=== PATIENT | male | born 1985 | race Hispanic/Latino ===

== ENCOUNTER 2018-09-13 18:44 | Observation (INO) | payer OTHER ==
[2018-09-13 18:57] VITALS: BMI 36.7
[2018-09-13 20:02] LABS: HEMOGLOBIN 17.7 g/dL (14.0-18.0); MEAN CELL VOLUME 93.4 fl (80.0-105.0); MEAN CORPUSCULAR HEMOGLOBIN 32.4 pg (25.0-35.0); MEAN CORPUSCULAR HGB CONC 34.6 g/dl (31.0-37.0); MEAN PLATELET VOLUME 9.2 fl (7.0-11.0); RBC 5.47 10^6/uL (3.5-6.1); RED CELL DISTRIBUTION WIDTH 12.7 % (11.5-14.5); WHITE BLOOD COUNT 11.7 10^3/uL (4.5-11.0)
--- NOTE | 2018-09-13 20:05 | ED PDOC ---
Arrival/HPI - General Chief Complaint: Syncope Time Seen by Provider: 09/13/18 19:26 Historian: Patient - History of Present Illness Narrative History of Present Illness (Text): 09/13/18 20:02 33 year old male, whose past medical history includes hypertension, presents to the emergency department for evaluation of syncopal episode which occurred earlier this evening. He does not remember what happened, he was playing video games at time, shortly becoming dizzy, stopping, and then passed out according to the mom. Patient reportedly was clenching his teeth at the time. No tongue biting or urinary incontinents. Mother states he was slightly drowsy after but awake. Patient does not recollect the event he denies fevers, chills, headache, dizziness, chest pain, shortness of breath, dyspnea on exertion, cough, abdominal pain, nausea, vomiting, diarrhea, back pain, neck pain, or any other complaint. Time/Duration: Prior to Arrival Symptom Onset: Sudden Activities at Onset: Light Context: Home Past Medical History - Provider Review Nursing Documentation Reviewed: Yes - Cardiac Hx Hypertension: Yes - Psychiatric Hx Substance Use: No - Surgical History Hx Orthopedic Surgery: Yes (R leg) - Anesthesia Hx Anesthesia: Yes Family/Social History - Physician Review Nursing Documentation Reviewed: Yes Family/Social History: No Known Family HX Smoking Status: Never Smoked Hx Alcohol Use: No Hx Substance Use: No Allergies/Home Meds Allergies/Adverse Reactions: Allergies No Known Allergies Allergy (Verified 09/13/18 18:57) Home Medications: Home Meds Medication Instructions Recorded Confirmed Azilsartan Medoxomil [Edarbi] 40 mg PO DAILY 09/13/18 09/13/18 Review of Systems - Physician Review All systems were reviewed & negative as marked: Yes - Review of Systems Constitutional: absent: Fevers Respiratory: absent: SOB, Cough Cardiovascular: Syncope. absent: Chest Pain Gastrointestinal: absent: Abdominal Pain, Nausea, Vomiting, Appetite Changes Genitourinary Male: absent: Dysuria Musculoskeletal: absent: Back Pain, Neck Pain Neurological: absent: Headache, Dizziness Physical Exam Vital Signs Reviewed: Yes Vital Signs Pulse Resp BP Pulse Ox 09/13/18 19:48 83 18 99/45 L 100 Temperature: Afebrile Blood Pressure: Hypotensive Pulse: Regular Respiratory Rate: Normal Appearance: Positive for: Well-Appearing, Non-Toxic, Comfortable Pain Distress: None Mental Status: Positive for: Alert and Oriented X 3 - Systems Exam Head: Present: Atraumatic, Normocephalic Pupils: Present: PERRL Extroacular Muscles: Present: EOMI Conjunctiva: Present: Normal Ears: Present: NORMAL TM Mouth: Present: Moist Mucous Membranes Neck: Present: Normal Range of Motion Respiratory/Chest: Present: Clear to Auscultation, Good Air Exchange. No: Respiratory Distress, Accessory Muscle Use Cardiovascular: Present: Regular Rate and Rhythm, Normal S1, S2. No: Murmurs Abdomen: No: Tenderness, Distention, Peritoneal Signs Back: Present: Normal Inspection Upper Extremity: Present: Normal Inspection. No: Cyanosis, Edema Lower Extremity: Present: Normal Inspection. No: Edema Neurological: Present: GCS=15, CN II-XII Intact, Speech Normal, Motor Func Grossly Intact, Normal Sensory Function Skin: Present: Warm, Dry, Normal Color. No: Rashes Psychiatric: Present: Alert, Oriented x 3, Normal Insight, Normal Concentration Medical Decision Making ED Course and Treatment: 09/13/18 20:02 Impression: 33 year old male who presents to the emergency department s/p syncopal episode. Differential Diagnosis included but are not limited to: seizure vasovagal syncope cardiac arrhythmia Plan: -- Head CT w/o contrast -- EKgG -- Labs -- Chest X-ray -- Reassess and disposition Prior Visits: Notes and results from previous visits were reviewed. Progress Notes: 09/13/18 22:14 CT head reviewed by radiologist, shows: No acute intracranial abnormality 09/13/18 23:23 EKG reviewed by me, shows: Normal sinus rhythm @66bpm No acute changes. 09/13/18 23:[address] Bryant who accepts patient to his service, and requests the medical insurance clerk be called. Spoke with vice president mission integration. Dr Donahue on consult. - Lab Interpretations I have reviewed the lab results: Yes - RAD Interpretation Radiology Orders: 09/13/18 19:50 HEAD W/O CONTRAST [CT] Stat CHEST PORTABLE [RAD] Stat - EKG Interpretation Interpreted by ED Physician: Yes Type: 12 lead EKG - Scribe Statement The provider has reviewed the documentation as recorded by the Christianibanna Bautista Provider Scribe Attestation: All medical record entries made by the Scribe were at my direction and personally dictated by me. I have reviewed the chart and agree that the record accurately reflects my personal performance of the history, physical exam, medical decision making, and the department course for this patient. I have also personally directed, reviewed, and agree with the discharge instructions and disposition. Disposition/Present on Arrival - Present on Arrival Any Indicators Present on Arrival: No History of DVT/PE: No History of Uncontrolled Diabetes: No Urinary Catheter: No History of Decub. Ulcer: No History Surgical Site Infection Following: None - Disposition Have Diagnosis and Disposition been Completed?: Yes Diagnosis: Syncope Disposition: HOSPITALIZED Disposition Time: 23:28 Patient Problems: Current Active Problems Problem Status Onset Syncope Acute Condition: STABLE
[2018-09-13 20:14] LABS: INR 1.03; PROTHROMBIN TIME 11.7 SECONDS (9.4-12.5)
[2018-09-13 20:15] LABS: ALB/GLOB RATIO 1.6 (1.1-1.8); ALBUMIN 4.5 g/dL (3.0-4.8); ALT/SGPT 50 U/L (7-56); AST/SGOT 31 U/L (17-59); BLOOD UREA NITROGEN 15 mg/dL (7-21); CALCIUM 9.5 mg/dL (8.4-10.5); GFR NON-AFRICAN AMERICAN > 60
[2018-09-13 20:25] LABS: TROPONIN I < 0.01 ng/mL
[2018-09-13] MEDS ORDERED: Lactated Ringer's 1,000 ML IV SCH (23:45)
[2018-09-14 00:28] LABS: FREE T4 1.19 ng/dL (0.78-2.19)
[2018-09-14 01:25] LABS: TROPONIN I < 0.01 ng/mL
[2018-09-14 01:32] LABS: FREE T4 1.17 ng/dL (0.78-2.19); T4 8.9 ug/dL (5.5-11.0)
--- NOTE | 2018-09-14 02:18 | CP.PCM.HP ---
History of Present Illness - History of Present Illness History of Present Illness: Christiana Ruiz, PGY-1, Internal Medicine History and Physical for Dr. Bryant 33 year old male with past medical history of hypertension, obstructive sleep apnea, and vitamin D deficiency presents with an episode of syncope vs. seizure. Patient reports that around 18:00 on 09/13, patient stood up after playing videos games and started to feel dizzy. He splashed some water on his face and he passed out. His mother at bedside reports that his brother who was present at the event noticed that the patient became stiff and was clenching his teeth. Patient also reports that he had an episode of urinary incontinence during the event. Patient denied tongue biting or fecal incontinence. After the event, patient felt dizzy. EMS brought the patient in and noted that the patient had low blood pressure. The exact reading cannot be found. At bedside, patient denied any current symptoms including headache, fever, chest pain, shortness of breath, nausea, vomiting, constipation, diarrhea, dysuria, hematuria, numbness/tingling. 12-point ROS was unremarkable except for what was mentioned above. PMH: as stated above PSH: right knee surgery FMHx: MS, DM II, stroke, CHF, NH, Alzhiemer's SHx: smokes 1 PPD for 10 years, denies alcohol use, reports marijuana use for "long time" Allergies: denies PMD: Dr. Bryant Home Rx: Edarbi 40 mg, Vitamin D Present on Admission - Present on Admission Any Indicators Present on Admission: No Review of Systems - Constitutional Constitutional: absent: Anorexia, Chills, Fever - EENT Eyes: absent: Blurred Vision Nose/Mouth/Throat: absent: Nasal Congestion - Cardiovascular Cardiovascular: absent: Chest Pain, Dyspnea, Edema, Leg Edema - Respiratory Respiratory: Snoring. absent: Cough, Dyspnea, Wheezing - Gastrointestinal Gastrointestinal: absent: Abdominal Pain, Constipation, Diarrhea, Nausea, Vomiting - Genitourinary Genitourinary: absent: Dysuria, Hematuria - Musculoskeletal Musculoskeletal: absent: Arthralgias - Neurological Neurological: Dizziness. absent: Numbness, Tingling, Vertigo Past Patient History - Past Social History Smoking Status: Never Smoked - CARDIAC Hx Cardiac Disorders: Yes Hx Hypertension: Yes - PULMONARY Hx Respiratory Disorders: No - NEUROLOGICAL Hx Neurological Disorder: No - HEENT Hx HEENT Problems: No - RENAL Hx Chronic Kidney Disease: No - ENDOCRINE/METABOLIC Hx Endocrine Disorders: No - HEMATOLOGICAL/ONCOLOGICAL Hx Blood Disorders: No - INTEGUMENTARY Hx Dermatological Problems: No - MUSCULOSKELETAL/RHEUMATOLOGICAL Hx Musculoskeletal Disorders: Yes Hx Fractures: Yes (right leg fracture with screws) - GASTROINTESTINAL Hx Gastrointestinal Disorders: No - GENITOURINARY/GYNECOLOGICAL Hx Genitourinary Disorders: No - PSYCHIATRIC Hx Psychophysiologic Disorder: No - SURGICAL HISTORY Hx Surgeries: Yes Hx Orthopedic Surgery: Yes (R leg) - ANESTHESIA Hx Anesthesia: Yes Meds Allergies/Adverse Reactions: Allergies Allergy/AdvReac Type Severity Reaction Status Date / Time No Known Allergies Allergy Verified 09/13/18 18:57 Physical Exam - Constitutional Appears: Well, Non-toxic, No Acute Distress - Head Exam Head Exam: ATRAUMATIC, NORMAL INSPECTION, NORMOCEPHALIC - Eye Exam Eye Exam: EOMI, PERRL Additional comments: horizontal and vertical nystagmus tests were negative. - ENT Exam ENT Exam: Mucous Membranes Moist - Respiratory Exam Respiratory Exam: Clear to Auscultation Bilateral, NORMAL BREATHING PATTERN - Cardiovascular Exam Cardiovascular Exam: REGULAR RHYTHM, RRR - GI/Abdominal Exam GI & Abdominal Exam: Normal Bowel Sounds, Soft. absent: Tenderness - Extremities Exam Extremities exam: Positive for: full ROM, normal inspection - Neurological Exam Neurological exam: Alert, CN II-XII Intact, Normal Gait, Oriented x3 Additional comments: negative Romberg's - Skin Skin Exam: Dry, Intact, Normal Color Results - Vital Signs Recent Vital Signs: Last Vital Signs Temp Pulse 70 09/14/18 01:45 Resp 18 09/14/18 01:45 BP 105/57 L 09/14/18 01:45 Pulse Ox 95 09/14/18 01:45 - Labs Result Diagrams: 09/13/18 19:00 09/13/18 19:00 Labs: Laboratory Results - last 24 hr 09/13/18 09/13/18 09/13/18 19:00 19:00 19:00 WBC 11.7 H RBC 5.47 Hgb 17.7 Hct 51.1 MCV 93.4 MCH 32.4 MCHC 34.6 RDW 12.7 Plt Count 379 MPV 9.2 PT 11.7 INR 1.03 APTT 30.0 Sodium 138 Potassium 4.4 Chloride 101 Carbon Dioxide 30 Anion Gap 11 BUN 15 Creatinine 1.0 Est GFR ( Amer) > 60 Est GFR (Non-Af Amer) > 60 Random Glucose 104 Calcium 9.5 Total Bilirubin 1.4 H AST 31 ALT 50 Alkaline Phosphatase 72 Lactate Dehydrogenase 322 L Total Creatine Kinase 30 L Troponin I < 0.01 Total Protein 7.3 Albumin 4.5 Globulin 2.8 Albumin/Globulin Ratio 1.6 Free T4 Thyroxine (T4) TSH 3rd Generation 09/13/18 09/14/18 09/14/18 19:00 00:45 00:45 WBC RBC Hgb Hct MCV MCH MCHC RDW Plt Count MPV PT INR APTT Sodium Potassium Chloride Carbon Dioxide Anion Gap BUN Creatinine Est GFR ( Amer) Est GFR (Non-Af Amer) Random Glucose Calcium Total Bilirubin AST ALT Alkaline Phosphatase Lactate Dehydrogenase Total Creatine Kinase 33 L Troponin I < 0.01 Total Protein Albumin Globulin Albumin/Globulin Ratio Free T4 1.19 1.17 Thyroxine (T4) 9.0 8.9 TSH 3rd Generation 2.12 1.24 Assessment & Plan - Assessment and Plan (Free Text) Assessment: 33 year old male with past medical history of hypertension, obstructive sleep apnea, and vitamin D deficiency presents with an episode of syncope vs. seizure. Plan: Seizure vs. Syncope -Event possibly due to orthostatic hypotension. Orthostatic vitals ordered and started on lactated ringer at 100 cc/hr -Head CT: shows no acute intracranial findings -Follow up results of Head MRI/MRA -Follow up lipid panel, TSH, T4, UDS, vitamin B12, CPK, magnesium, and phosphorus, ESR, CRP, lyme disease IgG -Vital signs Q4 -Neuro Check Q2 -Seizure precautions -Aspirin 81, atorvastatin 40 mg for possible cardiac cause of syncope -Dr. Donahue, Neurology, consulted for recommendations -Dr. Dueñas, Cardiology, consulted for recommendations. History of hypertension -On admission, blood pressure was 99/45. Last blood pressure was 105/57 -Hold home edarbi History of Obstructive Sleep Apnea -Recommend CPAP Vitamin D Deficiency -Documented history -No results available -Vitamin D level ordered GI prophylaxis: protonix 40 mg daily DVT prophylaxis: SCD, lovenox 40 mg daily Patient plan discussed with Dr. Bryant. - Date & Time Date: 09/14/18 Time: 02:21
[2018-09-14 04:23] LABS: ALT/SGPT 54 U/L (7-56); HDL CHOLESTEROL 33 mg/dL (29-60)
[2018-09-14 04:25] LABS: ALB/GLOB RATIO 1.7 (1.1-1.8); ALBUMIN 4.3 g/dL (3.0-4.8); AST/SGOT 23 U/L (17-59); BILIRUBIN,DIRECT 0.1 mg/dL (0.0-0.4); BLOOD UREA NITROGEN 14 mg/dL (7-21); CALCIUM 9.4 mg/dL (8.4-10.5); GFR NON-AFRICAN AMERICAN > 60
[2018-09-14 04:26] LABS: BASO % 0.4 % (0.0-3.0); EOS % 1.1 % (1.5-5.0); GRAN # 11.36 (1.4-6.5); GRAN % 73.8 % (50.0-68.0); HEMOGLOBIN 16.7 g/dL (14.0-18.0); LYMPH # 2.9 (1.2-3.4); LYMPH % 18.9 % (22.0-35.0); MEAN CELL VOLUME 91.3 fl (80.0-105.0); MEAN CORPUSCULAR HEMOGLOBIN 31.6 pg (25.0-35.0); MEAN CORPUSCULAR HGB CONC 34.6 g/dl (31.0-37.0); MEAN PLATELET VOLUME 8.8 fl (7.0-11.0); MONO # 0.9 (0.1-0.6); MONO % 5.8 % (1.0-6.0); RBC 5.29 10^6/uL (3.5-6.1); RED CELL DISTRIBUTION WIDTH 12.7 % (11.5-14.5); WHITE BLOOD COUNT 15.4 10^3/uL (4.5-11.0)
[2018-09-14 04:27] LABS: BASO # 0.06 K/mm3 (0.0-2.0); EOS # 0.2 (0.0-0.7)
[2018-09-14 04:34] LABS: LDL CHOLESTEROL 101 mg/dL (0-129); TROPONIN I < 0.01 ng/mL
[2018-09-14] MEDS ORDERED: Pantoprazole 40 mg EC Tab PO SCH (06:00)
[2018-09-14 08:46] LABS: TROPONIN I < 0.01 ng/mL
--- NOTE | 2018-09-14 08:57 | CT ---
Date of service: 09/13/2018 PROCEDURE: CT HEAD WITHOUT CONTRAST. HISTORY: syncope COMPARISON: None available. TECHNIQUE: Axial computed tomography images were obtained through the head/brain without intravenous contrast. Radiation dose: Total exam DLP = 1023.77 mGy-cm. This CT exam was performed using one or more of the following dose reduction techniques: Automated exposure control, adjustment of the mA and/or kV according to patient size, and/or use of iterative reconstruction technique. FINDINGS: HEMORRHAGE: No intracranial hemorrhage. BRAIN: No mass effect or edema. No atrophy or chronic microvascular ischemic changes. VENTRICLES: Unremarkable. No hydrocephalus. CALVARIUM: Unremarkable. PARANASAL SINUSES: Unremarkable as visualized. No significant inflammatory changes. MASTOID AIR CELLS: Unremarkable as visualized. No inflammatory changes. OTHER FINDINGS: The report concurs with the preliminary [facility] report IMPRESSION: No acute intracranial findings
[2018-09-14] MEDS ORDERED: Gadodiamide 287 MG/ML VIAL (20ML) IV ONE (09:41)
[2018-09-14] MEDS ORDERED: Enoxaparin 40 mg Syringe SC SCH (10:00)
--- NOTE | 2018-09-14 11:32 | MRI ---
Date of service: 09/14/2018 PROCEDURE: MRI BRAIN WITH AND WITHOUT CONTRAST HISTORY: SYNCOPE/SEIZURE COMPARISON: None available. TECHNIQUE: Multiplanar, multisequence MR images of the brain were obtained with and without intravenous contrast enhancement. 20 cc of Omniscan FINDINGS: HEMORRHAGE: None DWI: No evidence of an acute or early subacute infarction. BRAIN PARENCHYMA: No mass,mass effect or edema. No atrophy or chronic microvascular ischemic changes. ENHANCEMENT: No abnormal intracranial enhancement. VENTRICLES: Unremarkable. No hydrocephalus. CRANIUM: Unremarkable. ORBITS: Grossly unremarkable. PARANASAL SINUSES/MASTOIDS: Clear VASCULAR SYSTEM: Skull base flow voids intact. OTHER FINDINGS: None . IMPRESSION: Unremarkable pre and post contrast enhanced MRI of the brain.
--- NOTE | 2018-09-14 11:33 | MRI ---
Date of service: 09/14/2018 PROCEDURE: Magnetic Resonance Angiography Brain HISTORY: SYNCOPE/SEIZURE COMPARISON: None available. TECHNIQUE: 3D time of flight MR angiography of the intracranial arteries was performed. Rotating maximum intensity projection images were generated. FINDINGS: INTERNAL CAROTID ARTERIES: Unremarkable. The skull base, petrous, cavernous and supraclinoid segments are bilaterally widely patient. ANTERIOR CEREBRAL ARTERIES: Unremarkable. A1 and A2 segments are widely patent. Smaller distal branches unremarkable, as visualized. MIDDLE CEREBRAL ARTERIES: Unremarkable. M1 and M2 segments are widely patent. Perisylvian branches grossly symmetric. POSTERIOR CIRCULATION: Basilar Artery: Unremarkable. Distal Vertebral Arteries: Unremarkable. Posterior Cerebral Arteries: Unremarkable. Posterior Inferior Cerebellar Arteries: Unremarkable. ANEURYSM/ VASCULAR MALFORMATIONS: None. OTHER FINDINGS: None. IMPRESSION: Unremarkable MR angiography of the brain.
--- NOTE | 2018-09-14 11:51 | RAD ---
HISTORY: syncope COMPARISON: None available. TECHNIQUE: Chest, one view. FINDINGS: Examination limited by habitus and hypoinflation. LUNGS: No focal consolidation. Please note that chest x-ray has limited sensitivity for the detection of pulmonary masses. PLEURA: No significant pleural effusion identified. No definite pneumothorax . CARDIOVASCULAR: Heart size appears within normal limits. No significant atherosclerotic calcification present. OSSEOUS STRUCTURES: No acute osseous abnormality identified. VISUALIZED UPPER ABDOMEN: Unremarkable. OTHER FINDINGS: None. IMPRESSION: No focal consolidation.
--- NOTE | 2018-09-14 12:12 | PN ---
DATE: 09/14/2018 LOCATION: The patient is now in room 362. SUBJECTIVE: The patient was yesterday seen in bed 13 in the emergency room. Overnight nurse's notes were reviewed. No syncope was documented. No seizure activity was documented. OBJECTIVE: VITAL SIGNS: From the last 12-24 hours, blood pressure from yesterday 99/45 up to 111/53, 105/57, 131/93, respirations 18, O2 sat 98%. Last blood pressure 147/84. HEAD: Normocephalic, atraumatic. HEENT examination shows pink conjunctivae. Anicteric sclerae. No oropharyngeal lesion. NECK: No neck rigidity. Neck is short and supple. CHEST: Kyphosis. LUNGS: Shows no audible crackle, rales or wheezing. CARDIOVASCULAR: S1, S2, regular rhythm. No audible murmur, gallop or rub. ABDOMEN: Obese, protuberant. Positive bowel sound. GENITALIA: Male. RECTAL: Deferred. EXTREMITIES: Shows no pitting edema, no calf tenderness, no Homans' sign. NEUROLOGIC: The patient is alert, awake, oriented x3. Cranial nerves II-XII intact. Gait examination is independent. VASCULAR: Palpable pulses. PSYCHIATRIC: Negative. DIAGNOSTICS: EKG is within normal limits. MRI, MRA of the brain done, results pending. LABORATORY DATA: From 09/14, WBC 15.4, hemoglobin/hematocrit 16.7, 48.3, platelet 345. Granulocytes; 74% segs. Sodium 140, potassium 4.4, chloride 104, CO2 27, BUN 14, creatinine 0.8, glucose 102, calcium 9.4, phosphorus 4.6, magnesium 2.0. Troponin all 3 sets are negative. Cholesterol 152, LDL 101. IMPRESSION AND PLAN: 1. Syncope. 2. Questionable seizure versus syncope. 3. Urinary incontinence. 4. Facial posturing during syncope and questionable seizure. 5. Hypotension (resolved). 6. Leukocytosis with granulocytosis, etiology undetermined. 7. Borderline hyperlipidemia. 8. Obesity. 9. History of hypertension. 10. Hypovitaminosis D. 11. History of snoring and possible obstructive sleep apnea. 12. Morbid obesity with elevated body mass index. PLAN: At this time, the patient was given IV fluid at the time of admission because of hypotension which will be considered for discontinuation. The patient is awaiting Cardiology, Neurology evaluation and recommendation. The patient's MRI, MRA of the brain will be reviewed when available. Carotid Doppler will be reviewed when available. EEG, echo reports will be reviewed when available. We will await further recommendation by Neurology, Cardiology regarding further recommendation. The patient will have a repeat CBC done in the morning for leukocytosis evaluation. The patient will be continued on GI, DVT prophylaxis. The patient will be continued on seizure precautions, neuro checks. Out of bed to chair. The patient will be continued on Protonix and GI, DVT prophylaxis. The patient will be given aspirin 81 mg daily. The patient will be given statins, Lipitor 40 mg daily. The patient will be given GI prophylaxis. At present, the patient is awaiting results of the diagnostic testing and evaluation by Neurology, Cardiology. All the above will determine the patient's disposition. The patient updated about his condition, diagnosis, test results, and further awaited recommendations from other community resource consultant involved in the care of the patient and other recommendation will also be based on the diagnostic test results which the patient acknowledged and understand. The patient was counseled about cessation of smoking, weight loss, cessation of recreational drug use. The patient was also advised outpatient polysomnography and sleep study for which the patient was advised Pulmonary, ENT evaluation. Dictated and electronically signed, not read. Chirag Bryant MD
[2018-09-14] MEDS ORDERED: Ergocalciferol 50,000 Intl Units Cap PO SCH (12:15)
[2018-09-14 12:53] LABS: FOLATE 3.8 ng/mL
--- NOTE | 2018-09-14 14:36 | US ---
PROCEDURE: Bilateral carotid artery duplex ultrasound HISTORY: Carotid stenosis syncope PHYSICIAN(S): Roger Srinivasan MD. TECHNIQUE: Duplex sonography and color-flow Doppler were used to evaluate the carotid bifurcations and limited segments of the vertebral arteries bilaterally. FINDINGS: There is mild intimal-medial thickening noted at the carotid bifurcations bilaterally. The peak systolic velocity in the proximal right internal carotid artery is 155 cm/sec. However, the ic/cc ratio is normal. This corresponds to a 0-19 percent proximal right ICA stenosis. Normal systolic velocities are noted in the proximal right external carotid artery. There is antegrade flow in the right vertebral artery. The peak systolic velocity in the proximal left internal carotid artery is 136 cm/sec. Once again, the ic/cc ratio is not Kacie this corresponds to a 0-19 percent proximal left ICA stenosis. Normal systolic velocities are noted in the proximal left external carotid artery. There is antegrade flow in the left vertebral artery. IMPRESSION: 1. Bilateral 0-19 percent proximal ICA stenoses. 2. Antegrade flow in both vertebral arteries.
--- NOTE | 2018-09-14 17:03 | CON ---
DATE: 09/14/2018 NEUROLOGY CONSULTATION CHIEF COMPLIANT: Syncope. HISTORY OF PRESENT ILLNESS: A 33-year-old man with history of hypertension, obstructive sleep apnea, vitamin D deficiency was apparently playing video games consistently for a prolonged time after which he stood up and started to feel dizzy and lightheaded face and passed out. His brother and mother noticed that he was clutching his teeth and was stiff, but no generalized tonic-clonic events. Had an episode of urinary incontinence. No tongue bite and no fecal incontinence. The patient had low systolic and diastolic blood pressure upon admission of 99/45 and 105/57 in repeat. His MRI of the brain and MRI of the head showed no acute intracranial abnormalities. Carotid Doppler showed 0 to 90% proximal ICA stenosis. Currently no focal weakness in extremities and moving around. No further syncopal episodes while in the hospital. FAMILY HISTORY: Noncontributory. SOCIAL HISTORY: No illicit drug use, smoking or ETOH abuse. REVIEW OF SYSTEMS: A 14-point review of systems is negative except per the HPI. MEDICATIONS: Reviewed by nurse's reconciliation sheet. ALLERGIES: NO KNOWN DRUG ALLERGIES. LABORATORY DATA: Sodium is 140, potassium is 4.1, chloride of 104, carbon dioxide 27, BUN of 40, creatinine 0.8, random glucose of 102, A1c is 5.5. Vitamin D level is 21.4 which is mildly low. PHYSICAL EXAMINATION: GENERAL: The patient is seen up in bed. No acute distress. VITAL SIGNS: Temperature 98, pulse rate of 71, blood pressure of 131/92, respiratory rate 18, and oxygen saturation 98% on room air. HEENT: Atraumatic and normocephalic. PERRLA. Extraocular muscles intact. NECK: Supple. No JVD. No adenopathy noted. LUNGS: Clear to auscultation. No adventitious sounds. HEART: S1 and S2. Normal rate and rhythm. No murmurs, rubs or gallops. ABDOMEN: Soft, nontender, and nondistended. Bowel sounds are present. EXTREMITIES: No clubbing. No cyanosis. Peripheral pulses 2+ felt bilaterally. NEUROLOGICAL: The patient is alert and oriented to person, place, month, and year. Speech is fluent without any errors. Cranial nerves II through XII are intact. Motor exam; moves all extremities equally. Toes are downgoing bilaterally. Sensory exam; light touch, pinprick, proprioception, and vibration intact. DTRs are 2+ throughout. Coordination; [id number] is intact. Gait is normal. Romberg negative. IMPRESSION: Syncopal convulsion rather than actual seizure, likely from transient cerebral hypoperfusion from likely low systolic and diastolic blood pressures. RECOMMENDATIONS: At this time; 1. Sleep hygiene advised. 2. Smoking cessation advised. 3. Adequate hydration throughout the day. 4. Avoid prolonged use of video games. He can followup in my office for an outpatient EEG. Thank you for this consult. Elton Donahue MD
[2018-09-14 17:21] VITALS: BP 125/78; PULSE 79; RESP 19; TEMP 98.4; O2SAT 96
[2018-09-14 17:36] LABS: RAPID PLASMA REAGIN NONREACTIVE (NONREACTIVE)
[2018-09-14 18:08] LABS: URINE BILIRUBIN NEGATIVE (NEGATIVE); URINE BLOOD NEGATIVE (NEGATIVE); URINE GLUCOSE (UA) NEGATIVE (NEGATIVE); URINE LEUKOCYTE ESTERASE NEGATIVE Leu/uL (NEGATIVE); URINE PROTEIN NEGATIVE mg/dL (<30 mg/dL); URINE UROBILINOGEN 0.2 E.U./dL (<1 E.U./dL)
[2018-09-14 18:09] LABS: URINE APPEARANCE CLEAR (CLEAR); URINE COLOR YELLOW (YELLOW)
[2018-09-14 18:18] LABS: BARBITURATES, UR NEGATIVE (NEGATIVE); BENZODIAZEPINES, UR NEGATIVE (NEGATIVE); OPIATES, UR NEGATIVE (NEGATIVE); PHENCYCLIDINE, UR NEGATIVE (NEGATIVE)
--- NOTE | 2018-09-14 18:29 | CARD ---
APPROVED REPORT Date of service: 09/13/2018 EKG Measurement Heart [id number] [place] 150P37 [id number] <Conclusion> Normal sinus rhythm Normal ECG
--- NOTE | 2018-09-14 18:56 | CARD ---
APPROVED REPORT Date of service: 09/14/2018 EKG Measurement Heart [id number] 160P46 [id number] <Conclusion> Normal sinus rhythm with sinus arrhythmia Normal ECG
--- NOTE | 2018-09-14 19:24 | CON ---
DATE: 09/14/2018 CARDIOLOGY CONSULTATION HISTORY: The patient is a 33-year-old male with no previous cardiac history, who has a witnessed syncopal episode. The patient's only memory of it is feeling a little dizzy prior to his loss of consciousness. PAST MEDICAL HISTORY: The patient's past medical history is free of diabetes mellitus. He recently was started on an antihypertensive medication. No previous cardiac history. No angina noted. SOCIAL HISTORY: The patient is an active smoker. REVIEW OF SYSTEMS: Fourteen-point review of systems is reviewed in detail. No history of seizures. No previous cardiac history. No previous syncope in the past. He denies drugs. He does admit to social alcohol use. PHYSICAL EXAMINATION: GENERAL: The patient is in no acute distress. VITAL SIGNS: Blood pressure is 131/93, the heart rate is in the 70s. NECK: Negative JVD. LUNGS: Without rales. HEART: Reveal S1, S2. EXTREMITIES: Without edema. EKG is within normal limits. LABORATORY DATA: Hemoglobin is 16.7, BUN and creatinine are unremarkable. The troponins are negative x3. Preliminary echocardiogram reveals good LV function with LVH and mildly dilated left atrium. No LV outflow obstruction is noted. IMPRESSION: 1. Syncope. 2. We will need to rule out seizure disorder. 3. Hypertension. 4. Left ventricular hypertrophy. 5. Nicotine addiction. PLAN: Given these findings, there is no evidence for cardiac cause of his syncope. However, transient hypotension from his antihypertensive medications is a possibility. He is on the current neurologic workup. I have discussed with the patient about the need to stop smoking and to undergo a cardiac risk reduction program. Roger Dueñas MD
--- NOTE | 2018-09-15 14:28 | PCM.EEG ---
Electroencephalogram Report - Electroencephalogram Report Procedure Date: 09/14/18 Medication: ASA, Tylenol, Atorvastatin Interpretation: Technical Information: This was a 16 -channel EEG, 1-channel EKG routine EEG performed using an [employer] machine. Electrodes were applied using the 10/20 international placement system. start; 18;15 End; 19;12 total 57 min. Clinical Information: syncope During resting wakefulness there was a symmetric posterior dominant rhythm at 8.5-9.5 Hz, 30-50 uV, which was reactive to eye opening and closing. Drowsiness (18;26) was associated with fragmentation of the posterior dominant rhythm and with slow roving eye movements. Light sleep (19:00) was recorded and was characterized by central vertex waves, sleep spindles, and bilateral theta slowing. Hyperventilation was not performed. Photic stimulation was performed and there were no changes on the record. Focal abnormality; none ECG was associated with a normal sinus rhythm. Impression: This is a normal awake drowsy and sleep electroencephalogram.
[2018-09-16 07:11] LABS: 23 KD (IGG) BAND Nonreactive
--- NOTE | 2018-09-16 11:30 | CARD ---
APPROVED REPORT Date of service: 09/14/2018 EXAM: Two-dimensional and M-mode echocardiogram with Doppler and color Doppler. INDICATION Syncope 2D DIMENSIONS Left Atrium (2D)4.3 (1.6-4.0cm)IVSd1.0 (0.7-1.1cm) LVDd4.7 (3.9-5.9cm)PWd1.1 (0.7-1.1cm) LVDs3.0 (2.5-4.0cm)FS (%) 35.7 % LVEF (%)65.0 (>50%) M-Mode DIMENSIONS Aortic Root3.20 (2.2-3.7cm)Aortic Cusp Exc.2.00 (1.5-2.0cm) Aortic Valve AoV Peak Gfadjyct142.0cm/Matt Peak GR.9mmHg Mitral Valve MV E Jwcyjxix631.0cm/sMV A Jjzuzhyq32.9cm/sE/A ratio1.3 TDI E/Lateral E'0.0E/Medial E'0.0 Pulmonary Valve PV Peak Drvwoslf08.9cm/sPV Peak Grad.3mmHg Tricuspid Valve TR Peak Owwktfbj812gf/sRAP [id number] Peak Gr.14mmHg [id number] LEFT VENTRICLE The left ventricular function is normal. The left ventricular ejection fraction is within the normal range. RIGHT VENTRICLE The right ventricle is normal size. ATRIA The left atrium is borderline dilated. The right atrium size is normal. AORTIC VALVE The aortic valve is thickened but opens well. MITRAL VALVE The mitral valve is thickened but opens well. TRICUSPID VALVE The tricuspid valve leaflets are thickened , but open well. There is trace tricuspid regurgitation. There is no pulmonary hypertension. PULMONIC VALVE The pulmonary valve is normal in structure. PERICARDIAL EFFUSION There is no pericardial effusion. <Conclusion> Good LV function No LV outflow obstruction
[2018-09-16 18:36] LABS: LYME IGM NEGATIVE (NEGATIVE)
[2018-09-16 18:43] LABS: LYME IGG NEGATIVE (NEGATIVE)
== END 2018-09-14 19:41 | disposition home or self-care (01) ==
LOC: ED 18:44 → ERH 23:22 → 3RNO 09-14 01:56
PROVIDERS: ADMIT Internal Medicine; ATTEND Internal Medicine
DX: R55 Syncope and collapse (principal); I11.9 Hypertensive heart disease without heart failure; G47.33 Obstructive sleep apnea (adult) (pediatric); I65.22 Occlusion and stenosis of left carotid artery; F17.210 Nicotine dependence, cigarettes, uncomplicated; E55.9 Vitamin D deficiency, unspecified; E66.01 Morbid (severe) obesity due to excess calories; Z68.36 Body mass index [BMI] 36.0-36.9, adult; R32 Unspecified urinary incontinence
CPT/HCPCS: 36415; 70450; 70544; 70553; 71045; 80053; 80061; 80324; 80345; 80346; 80349; 80353; 80358; 80361; 81003; 82248; 82306; 82550; 82607; 82746; 83036; 83615; 83735; 83992; 84100; 84439; 84443; 84484; 85025; 85027; 85610; 85651; 85730; 86140; 86592; 86617; 86618; 93005; 93306; 93880; 96372; 97161; 99285; A9579; G0378; G8978; G8979; G8980; J1650; J7120